=== PATIENT | female | born 1955 | race Caucasian/White ===

== ENCOUNTER → 2023-08-21 13:17 | Outpatient (REF) | payer MEDICARE, BC, SELFPAY | LOC: WDC 13:17 | PROVIDERS: ATTENDING PHYSICIAN Family Medicine | DX: Z12.31 Encounter for screening mammogram for malignant neoplasm of breast (principal) | CPT/HCPCS: 77063; 77067 ==

== ENCOUNTER 2024-10-21 16:20 | Emergency (ER) | payer MEDICARE, BC, SELFPAY ==
[2024-10-21 16:37] VITALS: BP 146/72
[2024-10-21 17:09] LABS: % Basophils 1.1 % (0-2); % Eosinophils 2.8 % (0-6); % Immature Granulocytes 0.3 % (0-0.5); % Lymphocytes 38.4 % (20.5-51.1); % Monocytes 7.9 % (1.7-9.3); % Neutrophils 49.5 % (42.2-75.2); Absolute Basophils 0.1 10^3/uL (0-0.2); Absolute Eosinophils 0.2 10^3/uL (0-0.7); Absolute Lymphocytes 2.9 10^3/uL (1.2-3.4); Absolute Monocytes 0.6 10^3/uL (0.1-0.6); Absolute Neutrophils 3.8 10^3/uL (1.4-6.5); Hematocrit 37.9 % (37.0-47.0); Hemoglobin 12.8 g/dL (12.0-16.0); Mean Corp Hgb Conc. 33.8 g/dL (33.0-37.0); Mean Corpuscular Hgb 31.2 pg (27.0-31.0); Mean Corpuscular Volume 92.4 fL (81.0-99.0); Mean Platelet Volume 10.6 fL (7.4-10.4); Nucleated Red Blood Cells % 0 %; Platelet Count 172 10^3/uL (130-400); Red Cell Dist. Width 12.3 % (11.5-14.5); Urine Albumin Negative (Neg - Trace); Urine Bilirubin Negative (Negative); Urine Character Clear (Clear); Urine Color Yellow; Urine Glucose Negative (Negative); Urine Ketone Negative (Negative); Urine Leukocyte 2+ (Negative); Urine Nitrite Negative (Negative); Urine Occult Blood 1+ (Negative); Urine Urobilinogen Negative (Neg - 1+); White Blood Cell Count 7.6 10^3/uL (4.8-10.8)
[2024-10-21 17:19] LABS: Urine Bacteria Few (Negative)
[2024-10-21 17:20] LABS: Urine Mucus Few
[2024-10-21 17:24] LABS: ALT (SGPT) 33 U/L (0-35); AST (SGOT) 36 U/L (14-36); Albumin 4.2 g/dl (3.5-5.0); Alkaline Phosphatase 64 U/L (38-126); Blood Urea Nitrogen 14 mg/dl (7-17); Calcium 9.7 mg/dl (8.4-10.2); Carbon Dioxide 25 mmol/L (22-30); Glucose 92 mg/dl (70-99); Lipase 80 U/L (23-300); Total Bilirubin 0.5 mg/dl (0.2-1.3); eGFR > 60.00
[2024-10-21 17:31] LABS: Chloride 111 mmol/L (98-107); Potassium 4.2 mmol/L (3.5-5.1); Sodium 141 mmol/L (135-145)
[2024-10-21 18:17] VITALS: BMI 23.0
--- NOTE | 2024-10-21 19:03 | ED.GENMED ---
History of Present Illness
General
Chief Complaint: Back Pain
Source: patient
Exam Limitations: none
Time Seen by Provider: 10/21/24 18:37
Nursing documentation reviewed up to this point in time: agreed with
History of Present Illness
History of Present Illness:
69-year-old female with history of headaches/migraines, PVD, hypothyroid presents for right flank pain that is intermittent over past week, the worset today, 02/18 now 12/18. She denies nausea or vomiting. She had a good bowel movement this morning.
She denies burning frequency w urination.
She has a history of chronic back pain for which she takes morphine, oxycodone and medical marijuana.
Past History
Past History
ED Past Medical History: Hypercholesterolemia and Other (Chronic back and neck pain under the care of pain management, headaches migraines, pneumonia, frequent urination, hypothyroidism)
ED Past Surgical History: Appendectomy, Cholecystectomy, Gynecological (Hysterectomy) and Other (Hernia repair, right lower extremity stent)
Social History
Tobacco: Non-smoker
Alcohol: None
Personal:
Living: with family
Employment: Disabled
Review of Systems
Review of Systems
Allergies reviewed?: Yes
All Other Systems: ROS reviewed and negative except as documented in HPI and ROS
Constitutional: Denies fever or chills
Respiratory: Denies trouble breathing
Cardiac: Denies chest pain
ABD/GI: Reports abdominal pain; Denies nausea, vomiting, diarrhea, constipated, bloody stools or black stools
: Reports flank pain (Right); Denies dysuria, frequency, difficulty voiding or urgency
Musculoskeletal: Reports back pain (Chronic)
Skin: Reports no symptoms
Neurological: Reports no symptoms
Phy Exam
Physical Exam
Physical Exam:
GENERAL: No acute distress. A&Ox3.
CONSTITUTIONAL: Afebrile.
EYES: clear, conjunctivae normal
ENMT: moist mucus membranes, Pharynx nl
RESPIRATORY: Regular respirations, nonlabored, lungs clear.
CARDIOVASCULAR: Regular rate and rhythm, no murmurs, no rubs.
GI: Soft, nontender, normal BS
MUSCULOSKELETAL: No flank pain to percussion/palpation but yells out and grabs right flank occasionally. Moves with ease. Well perfused.
SKIN: Warm, dry, pink
PSYCH: Normal mood and affect. Well kept, interactive and appropriate
NEUROLOGIC: Awake, alert and oriented. No focal neurological deficits
Course
Orders/Labs/Results
Orders:
Orders
10/21/24 16:57
Complete Blood Count/With Diff Urgent
Comprehensive Metabolic Panel Urgent
Lipase Urgent
Urinalysis Reflex To Culture Urgent
Date Specimen was Collected: 10/21/24
Time Specimen was Collected: 16:45
Urine Microscopic Reflex Cult Urgent
Urine Culture Urgent
ANDERSON Source: U
Specimen Description:
Date Specimen was Collected: 10/21/24
Time Specimen was Collected: 16:45
10/21/24 18:43
Ketorolac [Toradol] 15 mg IV NOW STA
10/21/24 18:44
CT Abd/pel Without Iv Or Oral Urgent
Comment:
Reason For Exam: R flank and abd pain
Abnormal Lab Results
10/21/24
16:57
RBC 4.10 L 10^6/uL
(4.20-5.40)
MCH 31.2 H pg
(27.0-31.0)
MPV 10.6 H fL
(7.4-10.4)
Chloride 111 H mmol/L
(98-107)
Ur Occult Blood Reflex 1+ A
(Negative)
Leukocyte Esterase Rfl 2+ A
(Negative)
Urine RBC 3-6 A /HPF
(0-2)
Urine Bacteria (Reflex) Few A
(Negative)
10/21/24 16:57
10/21/24 16:57
Vital Signs
Initial and Last Documented VS:
Initial Vital Signs
Temp Pulse Resp BP Pulse Ox
98.1 F 70 18 146/72 99
10/21/24 16:37 10/21/24 16:37 10/21/24 16:37 10/21/24 16:37 10/21/24 16:37
Last Documented Vital Signs
Temp Pulse Resp BP Pulse Ox
98.1 F 50 23 136/75 99
10/21/24 16:37 10/21/24 19:30 10/21/24 19:30 10/21/24 19:15 10/21/24 16:37
MDM/Problems Addressed
Differential Diagnosis Includes:
Kidney stone, UTI
MDM/Problems Addressed:
69-year-old female with history of headaches/migraines, PVD, hypothyroid presents for right flank pain that is intermittent over past week, the worset today, 02/18 now 12/18. She denies nausea or vomiting. She had a good bowel movement this morning.
She denies burning frequency w urination.
She has a history of chronic back pain for which she takes morphine, oxycodone and medical marijuana.
Afebrile, NAD
CBC, CMP unremarkable
UA: RBCs 3-6, negative nitrites, leukocytes 2+, WBCs 3-5.
9:00 PM:
CAT scan abdomen pelvis plain, radiology report read: IMPRESSION: No acute pathology of the abdomen or pelvis identified.
Prior cholecystectomy.
Severe atherosclerotic vascular disease of the abdominal aorta. Stable.
Moderate fecal material in the colon. Stable.
Moderate diffuse bladder wall thickening. This can be seen with cystitis or bladder outlet obstruction. Stable. This may be partially due to limited distention.
Pt states pain much relieved after IV Toradol. Now pain 06/20
May be recently passed kidney stone?
She is comfortable going home.
*Critical Care Note
Total Time (30-74mins, 75-104mins- exclusive of procedures): Not Applicable
ED Attending Note
-
Portions of this chart may have been created with voice recognition software.� Occasional wrong word or��sound alike� substitutions may have occurred due to the inherent limitations of voice recognition software.
Discharge Plan
Departure
Patient Disposition: Home (Routine Discharge)
Date of Disposition: 10/21/24
Time of Disposition: 21:08
Patient with high blood pressure during this ER visit?: No
Condition: Good
Discharge Problem:
Acute right flank pain
Instructions: Flank pain - ED discharge instructions
Prescriptions:
No Action
clopidogrel 75 MG tablet
75 mg PO DAILY Qty: 30 0RF
metoprolol tartrate 50 MG tablet
75 mg PO HS
levothyroxine 200 MCG tablet
200 mcg PO DAILY
Patient Comments:
?225 mcg?
lovastatin 20 MG tablet
20 mg PO HS
pregabalin [Lyrica] 200 MG capsule
200 mg PO DAILY
pregabalin [Lyrica] 200 MG capsule
400 mg PO HS
oxycodone 10 MG tablet
15 mg PO BID PRN (Reason: pain)
hydromorphone [Exalgo ER] 8 MG tablet extended release 24 hr
8 mg PO TID
Patient Comments:
takes 2 in am and 1 in pm
aspirin [Aspir-Low] 81 MG tablet,delayed release (DR/EC)
81 mg PO DAILY
Referrals:
Eric Gracia Jr., DO [Family Provider] - As needed
Activity Restrictions/Additional Instructions:
As we discussed, your workup here today shows nothing worrisome. I am not sure the cause of your pain, you may have passed a small kidney stone.
Ibuprofen as needed for pain
Interventions
Interventions:
*Risk Screen - Suicide Last Done: 10/21/24 16:37
*General Assessment Last Done: 10/21/24 16:37
*Neglect/Abuse Screening Last Done: 10/21/24 16:37
*ED- Fall Risk Assessment Last Done: 10/21/24 18:17
*ED COVID-19 Vaccine History Last Done: 10/21/24 16:37
*Nursing Disposition Last Done: 10/21/24 21:38
ED-Musculoskeletal Assessment Last Done: 10/21/24 18:17
Discharge Date and Time
Discharge Date/Time: 10/21/24 21:39
Print Language: GREEK
[2024-10-21] MEDS: TORADOL 15 MG IV (19:10)
[2024-10-21 19:15] VITALS: BP 136/75
== END 2024-10-21 21:39 | disposition home or self-care (01) ==
LOC: EMR 16:20
PROVIDERS: EMERGENCY PHYSICIAN Student in an Organized Health Care Education/Training Program; FAMILY PHYSICIAN Family Medicine
DX: R10.9 Unspecified abdominal pain (principal); E03.9 Hypothyroidism, unspecified; E78.00 Pure hypercholesterolemia, unspecified; I73.9 Peripheral vascular disease, unspecified; G89.29 Other chronic pain; Z79.891 Long term (current) use of opiate analgesic; Z79.899 Other long term (current) drug therapy; Z90.49 Acquired absence of other specified parts of digestive tract; Z90.710 Acquired absence of both cervix and uterus
CPT/HCPCS: 96374; 99284; 74176; 80053; 81003; 81015; 83690; 85025; 87086

== ENCOUNTER → 2024-12-02 11:43 | Outpatient (REF) | payer MEDICARE, BC, SELFPAY | LOC: WDC 11:43 | PROVIDERS: ATTENDING PHYSICIAN Family Medicine | DX: Z12.31 Encounter for screening mammogram for malignant neoplasm of breast (principal) | CPT/HCPCS: 77063; 77067 ==

== ENCOUNTER → 2024-12-04 10:12 | Outpatient (REF) | payer MEDICARE, BC, SELFPAY | LOC: RAD 10:12 | PROVIDERS: ATTENDING PHYSICIAN Family Medicine | DX: I73.9 Peripheral vascular disease, unspecified (principal) | CPT/HCPCS: 93922; 93925 ==

== ENCOUNTER → 2025-01-30 11:37 | Outpatient (REF) | payer MEDICARE, BC, SELFPAY | LOC: RAD 11:37 | PROVIDERS: ATTENDING PHYSICIAN Surgery Vascular Surgery; FAMILY PHYSICIAN Family Medicine | DX: I73.9 Peripheral vascular disease, unspecified (principal) | CPT/HCPCS: 75635; Q9967 ==

== ENCOUNTER → 2025-05-28 10:37 | Outpatient (REF) | payer MEDICARE, BC, SELFPAY | LOC: WDC 10:37 | DX: Z12.39 Encounter for other screening for malignant neoplasm of breast (principal) | CPT/HCPCS: 76642; 77065 ==